=== PATIENT | male | born 1975 | race African-American/Black ===

== ENCOUNTER 2022-10-01 14:25 | Emergency (ER) | payer MEDICAID ==
[~2022-10-01] VITALS: Ht 172.7 cm; Wt 108.0 kg
[2022-10-01 14:47] VITALS: BP 153/115; PULSE 64; RESP 18; TEMP 98.6; O2SAT 99
== END 2022-10-01 15:23 | disposition left against medical advice (07) ==
LOC: ER 14:46
DX: Z53.21 Procedure and treatment not carried out due to patient leaving prior to being seen by health care provider (principal); I49.9 Cardiac arrhythmia, unspecified
CPT/HCPCS: 93005; 99281